=== PATIENT | male | born 1950 | race Caucasian/White ===

== ENCOUNTER 2019-02-05 21:06 | Emergency (ER) | payer OTHER, MEDICARE, SELFPAY ==
[2019-02-05 21:08] VITALS: BP 119/89; PULSE 110; RESP 16; TEMP 37; O2SAT 99; BMI 23.6
--- NOTE | 2019-02-05 22:19 | EKG12_ITS ---
Test Reason : PALPITATIONS Blood Pressure : / mmHG Vent. Rate : 100 BPM Atrial Rate : 100 BPM P-R Int : 182 ms QRS Dur : 092 ms QT Int : 366 ms P-R-T Axes : 027 -19 017 degrees QTc Int : 472 ms Normal sinus rhythm Possible Anterolateral infarct , age undetermined Abnormal ECG Confirmed by INNA BARBOSA, DOREEN ([id number]), videotape editor DAYAN MCKEON ([id number]) on 02/09/2019 11:35:18 AM Referred By: RENEE Confirmed By:DOREEN KEITH MD
[2019-02-05 22:26] VITALS: BP 150/87; PULSE 100; RESP 15; O2SAT 94
[2019-02-05 22:37] LABS: Absolute Lymphocyte Count 1.96 X10^3/uL (0.83-4.51); Absolute Neutrophil Count 4.9 X10^3/uL (2.0-7.7); Basophil# 0.06 X10^3/uL; Basophil% 0.8 % (0-1); Eosinophil# 0.08 X10^3/uL; Hematocrit 44.4 % (40-54); Hemoglobin 15.1 g/dL (13.0-16.5); Lymphocyte # 1.96 X10^3/ul (4.0); Mean Corpuscular Hgb 29.3 pg (27.0-32.0); Mean Platelet Vol. 9.3 fl (6.2-12.0); Monocyte# 0.87 X10^3/uL; Monocyte% 11.1 % (0-10); NRBC Flagged by Analyzer 0 % (0-5); Neutrophil # 4.85 X10^3/uL (2.7-7.7); Neutrophil % 61.8 % (47-70); Platelet Count 272 K/mm3 (150-450); RBC Distribution Width CV 11.9 % (11.6-14.6); RBC Distribution Width SD 37.2 fl (35.1-43.9); Red Blood Count 5.16 M/mm3 (4.6-6.2); White Blood Count 7.8 K/mm3 (4.4-11.0)
[2019-02-05 22:55] LABS: Anion Gap 6 (5-15); BUN 18 mg/dL (7-18); BUN/Creat Ratio 18.1 RATIO (10-20); Calcium,Total 8.8 mg/dL (8.5-10.1); Chloride 105 mmol/L (98-107); Creatinine, Serum 0.99 mg/dL (0.70-1.30); EST Glomerular Filtration Rate 80 mL/min (>60); Est Glom Filt Rate - Afr Amer 97 mL/min (>60); Estimated Creatinine Clearance 75.79 ml/min; Glucose 114 mg/dL (74-106); Potassium 3.5 mmol/L (3.5-5.1); Sodium Level 141 mmol/L (136-145); Thyroid Stim Hormone (TSH) 4.16 uIU/mL (0.358-3.74)
--- NOTE | 2019-02-05 23:22 | ED.DCSUM_ITS ---
- ER Visit Summary Date of Service: 02/05/19 Chief Complaint: [Irregular heartbeat/palpitations] History of Present Illness: The patient is a 68 M [presents to the emergency department with symptoms that he noticed this evening. Patient states that he was sitting with his hands behind his head and he had his fingers on his pulse and could feel that his pulse was irregular. Patient denies any chest pain or shortness of breath. Patient denies any prior history of palpitations. Patient states that he has not been having exertional chest pain and he actually split wood today and did not have any issues. Patient has history of hypertension, high cholesterol, BPH, and tachycardia. Patient used to see Dr. 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 Patient denies recent travel or surgery. He denies any syncopal episodes. Patient has had a cough which she has had since October that he attributes to nasal drainage. Patient has a significant family history of heart disease.] Physical Examination: [HEENT-PERRLA, EOMI. Cranial nerves II through XII grossly intact. TMs clear. Mucous membranes moist. No adenopathy. Cardiovascular-regular with occasional ectopy. No murmurs auscultated. Lungs-clear to auscultation, chest wall stable without crepitus or subcu emphysema Abdomen-normoactive bowel sounds, soft, nontender, no rebound or rigidity, no peritoneal signs. Extremities-intact ?4, normal range of motion, normal pulses, atraumatic] Test Results: [EKG obtained on arrival showed a sinus rhythm with a ventricular rate of 100 bpm with occasional junctional escape beats/PACs. CBC with differential is normal. Chemistries unremarkable. Troponin was normal. TSH was 4.16.] Emergency Department Course and Treatment: [Patient had an IV line established and was placed on a night monitor.] Treatment Plan: [Patient to follow-up with cardiology within the next 5 to 7 days. Patient advised to return if chest pain, shortness of breath, exertional symptoms, or conditions worsen anyway.] Disposition: [Discharged home in stable condition] Impression: [Palpitations] This note was generated with [employer] software. It may contain incorrect words, spelling, and punctuation that were not noted in review of the chart prior to signing ED Disposition - Plan for ED Patient: Referrals: Estiven Cao MD [Primary Care Provider] -
--- NOTE | 2019-02-05 23:26 | ED.DEP ---
ED Disposition - Plan for ED Patient: Instructions: Palpitations Referrals: Estiven Cao MD [Primary Care Provider] - Sherif Tam MD [STAFF PHYSICIAN] - 5-7 Days
[2019-02-05 23:40] VITALS: BP 141/91; PULSE 98; RESP 17; O2SAT 95
== END 2019-02-05 23:41 | disposition home or self-care (01) ==
PROVIDERS: Emergency Provider Emergency Medicine; Family Provider Family Medicine; PCP Family Medicine
DX: R00.2 Palpitations (principal); R05 Cough; J34.89 Other specified disorders of nose and nasal sinuses; I49.1 Atrial premature depolarization; I10 Essential (primary) hypertension; E78.00 Pure hypercholesterolemia, unspecified; N40.0 Benign prostatic hyperplasia without lower urinary tract symptoms; Z79.82 Long term (current) use of aspirin; Z79.899 Other long term (current) drug therapy
CPT/HCPCS: 80048; 84443; 84484; 85025; 93005; 99284

== ENCOUNTER 2020-04-21 16:47 | Outpatient (RCR) | payer OTHER, MEDICARE, SELFPAY ==
[2020-04-21] MEDS: COVID-19 VACC, MRNA(PFIZER)/PF 30 MCG/0.3 ML SYRINGE IM (18:11)
[2020-05-12] MEDS: COVID-19 VACC, MRNA(PFIZER)/PF 30 MCG/0.3 ML SYRINGE IM (17:19)
== END 2020-04-21 23:59 ==
LOC: IMMUN 16:47
PROVIDERS: PCP Family Medicine; Referring Provider Family Medicine; Visit Provider Family Medicine
DX: Z23 Encounter for immunization (principal)
CPT/HCPCS: 0001A; 0002A; 91300